=== PATIENT | male | born 1960 | race Caucasian/White ===

== ENCOUNTER 2024-06-19 23:53 | Emergency (ER) | payer OTHER ==
[~2024-06-19] VITALS: Ht 172.7 cm; Wt 117.9 kg
[~2024-06-19 23:53] MED LIST: CLARITIN10 MG PO; ZITHROMAX Z PA250 MG PO
[2024-06-20 00:08] VITALS: BP 91/59
[2024-06-20] MEDS ORDERED: TAMIFLU 75MG CA75 MG PO (01:39)
[2024-06-20] MEDS ORDERED: Oseltamivir Phosphate 75 MG CAP PO ONE (01:40)
== END 2024-06-20 01:52 | disposition home or self-care (01) ==
LOC: ED 23:53
DX: J10.1 Influenza due to other identified influenza virus with other respiratory manifestations (principal); Z20.822 Contact with and (suspected) exposure to COVID-19